=== PATIENT | female | born 1965 | race Caucasian/White ===

== ENCOUNTER 2016-12-27 12:26 | Emergency (ER) | payer MEDICAID ==
[2016-12-27 12:30] VITALS: BMI 30.7
[2016-12-27] MEDS ORDERED: Aspirin 325 mg EC Tablets PO STA (12:59)
--- NOTE | 2016-12-27 13:03 | C.PDOC ---
History Of Present Illness 51 year old female presents to the ED with complaints of intermittent episodes of chest pain and palpitations for five days. As per patient's daughter, patient is also feeling weak and pain radiates to left hand and back. Patient notes a history of HTN and denies fever, leg swelling, or other complaints at this time. Time Seen by Provider: 12/27/16 12:36 Chief Complaint (Nursing): Chest Pain History Per: Patient, Family History/Exam Limitations: no limitations Onset/Duration Of Symptoms: Days (5 days) Quality: "Pain" Associated Symptoms: denies: Nausea, Dyspnea, Diaphoresis, Syncope Recent travel outside of the [place]: No Past Medical History Reviewed: Historical Data, Nursing Documentation, Vital Signs Vital Signs: Last Vital Signs Temp 98.6 F 12/27/16 15:30 Pulse 97 H 12/27/16 15:30 Resp 16 12/27/16 15:30 BP 139/86 12/27/16 15:30 Pulse Ox 99 12/27/16 15:48 Family History: States: Unknown Family Hx Review Of Systems Constitutional: Negative for: Fever, Chills Cardiovascular: Positive for: Chest Pain, Palpitations Respiratory: Negative for: Cough, Shortness of Breath Gastrointestinal: Negative for: Nausea, Vomiting Musculoskeletal: Positive for: Back Pain (left back pain radiating from chest pain), Hand Pain (left hand pain radiating from chest pain). Negative for: Leg Pain Neurological: Negative for: Weakness, Numbness, Headache Physical Exam - Physical Exam Appears: Non-toxic, No Acute Distress Skin: Warm, Dry Head: Atraumatic Eye(s): bilateral: Normal Inspection, PERRL, EOMI Oral Mucosa: Moist Neck: Supple Chest: Symmetrical, No Deformity Cardiovascular: Rhythm Regular Respiratory: Normal Breath Sounds, No Rales, No Rhonchi, No Wheezing Extremity: Normal ROM, No Tenderness, No Pedal Edema, No Calf Tenderness, Capillary Refill (good capillary refill, less than 2 seconds ), No Deformity, No Swelling Pulses: Left Dorsalis Pedis: Normal, Right Dorsalis Pedis: Normal Neurological/Psych: Oriented x3, Normal Speech, Normal Cognition, Normal Cranial Nerves, Normal Motor, Normal Sensation, Normal Reflexes ED Course And Treatment - Laboratory Results Result Diagrams: 12/27/16 13:17 12/27/16 13:17 Interpretation Of ECG: Sinus tachycardia 125 bpm, ST depressions, and V1, V2, V5 , and V6 AVF O2 Sat by Pulse Oximetry: 99 (room air ) Pulse Ox Interpretation: Normal - Radiology CXR: Interpreted by Me CXR Interpretation: Yes: No Acute Disease. No: Infiltrates Against Medical Advice - AMA Patient Left Against Medical Advice: The patient declines admission to the hospital and wishes to leave the Emergency Department. This action is against my medical advice. This decision was made with informed refusal. The patient was told that admission to the hospital is necessary. Explanation of the reasons why were discussed. The risks of leaving were explained to the patient and include, but are not limited to, worsening of known or currently unknown conditions, permanent disability and from undiagnosed or untreated conditions. The patient has the capacity to make this informed decision and understands my explanation of the current medical problem and risks of leaving. The patient voluntarily accepts these risks and signed an AMA form documenting our conversation. The patient was given the opportunity to ask questions and reconsider. The patient was encouraged to return to the Emergency Department at any time for further care. Medical Decision Making Medical Decision Making: The patient's EKG shows ischemia in the inferior/lateral leads. There is no EKG for comparison and patient has never been seen in this ED in the past. The patient was informed that she should be admitted for abnormal EKG and r/o ACS. Patient initial agrees upon admission. Call placed to Dr. Ahumada (covering Dr. Antonio Mera). On re-exam, patient is A&O x3 and patient reports that she feels much improved and refuses admission into the hospital. AMA form obtained. Disposition - Disposition Referrals: Cesar Mera MD [Medical Doctor] - Disposition: AGAINST MEDICAL ADVICE Disposition Time: 15:41 Condition: FAIR Additional Instructions: Follow up with the medical doctor/clinic within 1-2 days, Return if worsened Prescriptions: Aspirin [Ecotrin] 81 mg PO DAILY #30 tabec Instructions: Chest Pain (ED) - POA Present On Arrival: None - Clinical Impression Clinical Impression: Chest pain - Scribe Statement The provider has reviewed the documentation as recorded by the Scribe Shyla Mckeon All medical record entries made by the Scribe were at my direction and personally dictated by me. I have reviewed the chart and agree that the record accurately reflects my personal performance of the history, physical exam, medical decision making, and the department course for this patient. I have also personally directed, reviewed, and agree with the discharge instructions and disposition.
[2016-12-27 13:27] LABS: BASO % 0.4 % (0.0-2.0); EOS # 0.2 K/uL (0.0-0.7); EOS % 2.3 % (0.0-4.0); HEMOGLOBIN 11.2 g/dL (11.0-16.0); LYMPH % 25.7 % (20.0-40.0); MEAN CELL VOLUME 80.5 fL (81.0-99.0); MEAN CORPUSCULAR HEMOGLOBIN 25.2 pg (27.0-31.0); MEAN CORPUSCULAR HGB CONC 31.4 g/dL (33.0-37.0); MONO # 0.6 K/uL (0.0-0.8); MONO % 7.8 % (0.0-10.0); NEUT # 4.9 K/uL (1.8-7.0); NEUT % 63.8 % (50.0-75.0); RBC 4.45 Mil/uL (3.80-5.20); RED CELL DISTRIBUTION WIDTH 17.1 % (11.5-14.5); WHITE BLOOD COUNT 7.7 K/uL (4.8-10.8)
[2016-12-27 13:37] LABS: AST/SGOT 24 U/L (14-36); GFR AFRICAN-AMERICAN > 60; GFR NON-AFRICAN AMERICAN > 60; INR 1.2; PROTHROMBIN TIME 13.4 SECONDS (9.7-12.2)
[2016-12-27 13:38] LABS: ALT/SGPT 34 U/L (9-52); BLOOD UREA NITROGEN 9 mg/dL (7-17); CALCIUM 9.5 mg/dl (8.6-10.4)
[2016-12-27 13:47] LABS: B-TYPE NATRIURETIC PEPTIDE 21.3 pg/mL (0-450); CK-MB 0.41 ng/mL (0.0-3.38)
[2016-12-27 14:06] VITALS: RESP 16
[2016-12-27 15:36] VITALS: BP 139/86; PULSE 97; TEMP 98.6; O2SAT 99
--- NOTE | 2016-12-27 16:12 | RAD ---
PROCEDURE: CHEST RADIOGRAPH, 1 VIEW HISTORY: chest pain COMPARISON: None available. FINDINGS: LUNGS: Clear. PLEURA: No pneumothorax or pleural fluid seen. CARDIOVASCULAR: Normal. OSSEOUS STRUCTURES: No significant abnormalities. VISUALIZED UPPER ABDOMEN: Normal. OTHER FINDINGS: None. IMPRESSION: No active disease.
--- NOTE | 2016-12-30 13:01 | CARD ---
APPROVED REPORT EKG Measurement Heart [id number] <Conclusion> Sinus tachycardia Nonspecific ST and T wave abnormality Abnormal ECG
== END 2016-12-27 16:10 | disposition left against medical advice (07) ==
LOC: C.ER 12:26
DX: R07.9 Chest pain, unspecified (principal)

== ENCOUNTER 2018-08-04 08:57 | Observation (INO) | payer MEDICAID ==
[2018-08-04 08:57] VITALS: BMI 30.7
[2018-08-04] MEDS ORDERED: Sodium Chloride 0.9% 1,000 ML IV STA (09:23)
[2018-08-04] MEDS ORDERED: Sodium Chloride 0.9% 1,000 ML ONE (09:32)
--- NOTE | 2018-08-04 09:36 | C.PDOC ---
History Of Present Illness 52 y/o F c PMHx HTN, DM p/w body aches and headache x 1-2 weeks. Reports intermittent chest pain and 5 minute episodes of palpitations for the last week. Denies fever, vomiting, recent travel, surgeries. Time Seen by Provider: 08/04/18 09:21 Chief Complaint (Nursing): Palpitations Past Medical History Vital Signs: Last Vital Signs Temp 98.3 F 08/04/18 09:06 Pulse 152 H 08/04/18 09:06 Resp 18 08/04/18 09:06 BP 176/106 H 08/04/18 09:06 Pulse Ox 100 08/04/18 09:06 - Medical History PMH: HTN Family History: States: Unknown Family Hx - Social History Hx Alcohol Use: No Hx Substance Use: No - Immunization History Hx Tetanus Toxoid Vaccination: No Hx Influenza Vaccination: No Hx Pneumococcal Vaccination: No Review Of Systems Except As Marked, All Systems Reviewed And Found Negative. Constitutional: Negative for: Fever Gastrointestinal: Negative for: Vomiting Physical Exam - Physical Exam Additional Physical Exam Comments: Gen: NAD Head: NC/AT Eyes: PERRL ENT: MMM Neck: Supple Chest: No tenderness CV: Tachycardia Lungs: CTA b/l Abd: Soft, NT Back: No CVA tenderness Skin: No rash Extremities: No asymmetric edema Neuro: Alert, no focal deficit ED Course And Treatment - Laboratory Results Result Diagrams: 08/04/18 09:33 08/04/18 09:33 O2 Sat by Pulse Oximetry: 100 Medical Decision Making Medical Decision Making: EKG Sinus tachycardia 148 bpm, no ST elevations. Cardizem 20mg IVP administered, rate down to 120s. Will reassess after 15 minutes. HR continues in 130s, blood pressure stable. Will readminister 30mg IVP. Repeat EKG Sinus rhythm 109 bpm, no ST/T wave changes. FINDINGS: Examination limited by habitus. LUNGS: No focal consolidation. Please note that chest x-ray has limited sensitivity for the detection of pulmonary masses. PLEURA: No significant pleural effusion identified. No definite pneumothorax . CARDIOVASCULAR: Heart size appears within normal limits. Ectatic aorta. Atherosclerotic calcifications of the aorta present. OSSEOUS STRUCTURES: No acute osseous abnormality identified. VISUALIZED UPPER ABDOMEN: Unremarkable. OTHER FINDINGS: None. IMPRESSION: No focal consolidation. Disposition Discussed With : Rufino Boston - Disposition Disposition: HOSPITALIZED Disposition Time: 10:10 Condition: FAIR - POA Core Measure Indicators: Chest Pain - Clinical Impression Clinical Impression: Chest pain, Palpitations
[2018-08-04 09:38] LABS: BASO % 0.4 % (0.0-2.0); EOS % 0.2 % (0.0-4.0); LYMPH # 2.2 K/uL (1.0-4.3); LYMPH % 23.1 % (20.0-40.0); MEAN CORPUSCULAR HEMOGLOBIN 30.5 pg (27.0-31.0); MEAN CORPUSCULAR HGB CONC 32.9 g/dL (33.0-37.0); MEAN PLATELET VOLUME 7.7 fL (7.2-11.7); MONO # 0.4 K/uL (0.0-0.8); MONO % 4.2 % (0.0-10.0); NEUT # 6.7 K/uL (1.8-7.0); NEUT % 72.1 % (50.0-75.0); RBC 4.6 Mil/uL (3.80-5.20); RED CELL DISTRIBUTION WIDTH 13.8 % (11.5-14.5); WHITE BLOOD COUNT 9.3 K/uL (4.8-10.8)
[2018-08-04 09:40] LABS: MEAN CELL VOLUME 92.7 fL (81.0-99.0)
[2018-08-04 09:49] LABS: ALB/GLOB RATIO 1.3 (1.0-2.1); ALBUMIN 4.8 g/dL (3.5-5.0); ALT/SGPT 26 U/L (9-52); AST/SGOT 25 U/L (14-36); BLOOD UREA NITROGEN 13 mg/dL (7-17); CALCIUM 10.1 mg/dl (8.6-10.4); GFR NON-AFRICAN AMERICAN > 60
[2018-08-04 10:02] LABS: CK-MB 0.46 ng/mL (0.0-3.38)
[2018-08-04 10:21] LABS: INR 1.2
--- NOTE | 2018-08-04 10:36 | RAD ---
HISTORY: chest pain, tachycardia COMPARISON: Chest x-ray performed 12/27/16 TECHNIQUE: Chest, one view. FINDINGS: Examination limited by habitus. LUNGS: No focal consolidation. Please note that chest x-ray has limited sensitivity for the detection of pulmonary masses. PLEURA: No significant pleural effusion identified. No definite pneumothorax . CARDIOVASCULAR: Heart size appears within normal limits. Ectatic aorta. Atherosclerotic calcifications of the aorta present. OSSEOUS STRUCTURES: No acute osseous abnormality identified. VISUALIZED UPPER ABDOMEN: Unremarkable. OTHER FINDINGS: None. IMPRESSION: No focal consolidation.
[2018-08-04 10:56] LABS: SQUAMOUS EPITHIAL 1 /hpf (0-5); URINE BACTERIA RARE (<OCC); URINE BILIRUBIN NEGATIVE (NEGATIVE); URINE BLOOD NEGATIVE (NEGATIVE); URINE CLARITY Clear (Clear); URINE COLOR Straw (YELLOW); URINE GLUCOSE (UA) NORMAL (Normal); URINE LEUKOCYTE ESTERASE NEG Leu/uL (Negative); URINE PROTEIN NEGATIVE (NEGATIVE); URINE UROBILINOGEN NORMAL mg/dL (0.2-1.0)
--- NOTE | 2018-08-04 15:38 | CARD ---
APPROVED REPORT Date of service: 08/04/2018 EXAM: Two-dimensional and M-mode echocardiogram with Doppler and color Doppler. Other Information Quality : Rhythm : Tachycardia INDICATION Chest Pain Palpitations RISK FACTORS Hypertension Diabetes 2D DIMENSIONS IVSd0.7 (0.7-1.1cm)Aortic Root (2D)2.7 (2.0-3.7cm) LVDd4.7 (3.9-5.9cm)PWd0.8 (0.7-1.1cm) LA Hhdcux07 (18-58mL)LVDs2.2 (2.5-4.0cm) FS (%) 52.9 %LVEF (%)84.0 (>50%) LVEF (Laguna's)62.86 %IVC0.00 cm M-Mode DIMENSIONS RVDd1.49 (2.1-3.2cm)Left Atrium (MM)3.57 (2.5-4.0cm) IVSd0.91 (0.7-1.1cm)Aortic Root2.68 (2.2-3.7cm) LVDd4.77 (4.0-5.6cm)Aortic Cusp Exc.1.89 (1.5-2.0cm) PWd0.85 (0.7-1.1cm)FS (%) 52 % LVDs2.28 (2.0-3.8cm)LVEF (%)83 (>50%) Mitral Valve MV E Wxjwkcqg16.3cm/sMV A Lqqmebtm73.4cm/sE/A ratio0.7 JDUX622.24 cm/s TDI Lateral E' Peak V13.60cm/sMedial E' Peak V6.18cm/sE/Lateral E'4.4 E/Medial E'9.8 LEFT VENTRICLE The left ventricle is normal size. There is normal left ventricular wall thickness. The left ventricle is hyperdynamic. There is normal LV segmental wall motion. Transmitral Doppler flow pattern is Grade I-abnormal relaxation pattern. RIGHT VENTRICLE The right ventricle is normal size. There is normal right ventricular wall thickness. The right ventricular systolic function is normal. ATRIA The left atrium size is normal. The right atrium size is normal. AORTIC VALVE The aortic valve is normal in structure. No aortic regurgitation is present. There is no aortic valvular stenosis. MITRAL VALVE The mitral valve is normal in structure. There is no mitral valve stenosis. Mitral regurgitation is mild. TRICUSPID VALVE The tricuspid valve is normal in structure. There is mild tricuspid regurgitation. PULMONIC VALVE The pulmonary valve is normal in structure. There is no pulmonic valvular regurgitation. GREAT VESSELS The aortic root is normal in size. The IVC is normal in size and collapses >50% with inspiration. PERICARDIAL EFFUSION There is no pericardial effusion. <Conclusion> The left ventricle is normal size. There is normal left ventricular wall thickness. The left ventricle is hyperdynamic. There is normal LV segmental wall motion. Transmitral Doppler flow pattern is Grade I-abnormal relaxation pattern. Mitral regurgitation is mild. There is mild tricuspid regurgitation.
[2018-08-04 15:48] VITALS: RESP 20
[2018-08-04 20:12] LABS: CK-MB 0.44 ng/mL (0.0-3.38)
--- NOTE | 2018-08-04 21:44 | CP.PCM.HP ---
Present on Admission - Present on Admission Any Indicators Present on Admission: No Past Patient History - Past Social History Smoking Status: Never Smoked - CARDIAC Hx Hypertension: Yes - ENDOCRINE/METABOLIC Hx Diabetes Mellitus Type 2: Yes - PSYCHIATRIC Hx Substance Use: No - SURGICAL HISTORY Hx Surgeries: No - ANESTHESIA Hx Anesthesia: No Meds Allergies/Adverse Reactions: Allergies Allergy/AdvReac Type Severity Reaction Status Date / Time No Known Allergies Allergy Verified 08/04/18 09:43 Results - Vital Signs Recent Vital Signs: Last Vital Signs Temp 97.6 F 08/04/18 15:00 Pulse 96 H 08/04/18 19:49 Resp 20 08/04/18 15:00 BP 131/97 H 08/04/18 17:43 Pulse Ox 97 08/04/18 15:00 - Labs Result Diagrams: 08/04/18 09:33 08/04/18 09:33 Labs: Laboratory Results - last 24 hr 08/04/18 08/04/18 08/04/18 09:04 09:33 09:33 WBC 9.3 RBC 4.60 Hgb 14.0 D Hct 42.6 MCV 92.7 D MCH 30.5 MCHC 32.9 L RDW 13.8 Plt Count 440 H MPV 7.7 Neut % (Auto) 72.1 Lymph % (Auto) 23.1 [place] % (Auto) 4.2 Eos % (Auto) 0.2 Baso % (Auto) 0.4 Neut # (Auto) 6.7 Lymph # (Auto) 2.2 [place] # (Auto) 0.4 Eos # (Auto) 0.0 Baso # (Auto) 0.0 PT INR APTT Sodium Potassium Chloride Carbon Dioxide Anion Gap BUN Creatinine Est GFR ( Amer) Est GFR (Non-Af Amer) POC Glucose (mg/dL) 215 H Random Glucose Calcium Total Bilirubin AST ALT Alkaline Phosphatase Total Creatine Kinase CK-MB (Mass) Troponin I Total Protein Albumin Globulin Albumin/Globulin Ratio Urine Color Urine Clarity Urine pH Ur Specific [place] Urine Protein Urine Glucose (UA) Urine Ketones Urine Blood Urine Nitrate Urine Bilirubin Urine Urobilinogen Ur Leukocyte Esterase Urine WBC (Auto) Ur Squamous Epith Cells Urine Bacteria Influenza Typ A,B (EIA) Negative for flu a/b 08/04/18 08/04/18 08/04/18 09:33 09:33 10:32 WBC RBC Hgb Hct MCV MCH MCHC RDW Plt Count MPV Neut % (Auto) Lymph % (Auto) [place] % (Auto) Eos % (Auto) Baso % (Auto) Neut # (Auto) Lymph # (Auto) [place] # (Auto) Eos # (Auto) Baso # (Auto) PT 13.0 H INR 1.2 APTT 32 Sodium 140 Potassium 3.8 Chloride 100 Carbon Dioxide 27 Anion Gap 17 BUN 13 Creatinine 0.6 L Est GFR ( Amer) > 60 Est GFR (Non-Af Amer) > 60 POC Glucose (mg/dL) Random Glucose 198 H D Calcium 10.1 Total Bilirubin 0.4 AST 25 ALT 26 Alkaline Phosphatase 140 H Total Creatine Kinase 70 CK-MB (Mass) 0.46 Troponin I < 0.0120 Total Protein 8.6 H Albumin 4.8 Globulin 3.8 Albumin/Globulin Ratio 1.3 Urine Color Straw Urine Clarity Clear Urine pH 7.0 Ur Specific [place] 1.004 Urine Protein Negative Urine Glucose (UA) Normal Urine Ketones Negative Urine Blood Negative Urine Nitrate Negative Urine Bilirubin Negative Urine Urobilinogen Normal Ur Leukocyte Esterase Neg Urine WBC (Auto) 1 Ur Squamous Epith Cells 1 Urine Bacteria Rare Influenza Typ A,B (EIA) 08/04/18 08/04/18 08/04/18 16:17 19:45 21:34 WBC RBC Hgb Hct MCV MCH MCHC RDW Plt Count MPV Neut % (Auto) Lymph % (Auto) [place] % (Auto) Eos % (Auto) Baso % (Auto) Neut # (Auto) Lymph # (Auto) [place] # (Auto) Eos # (Auto) Baso # (Auto) PT INR APTT Sodium Potassium Chloride Carbon Dioxide Anion Gap BUN Creatinine Est GFR ( Amer) Est GFR (Non-Af Amer) POC Glucose (mg/dL) 117 H 125 H Random Glucose Calcium Total Bilirubin AST ALT Alkaline Phosphatase Total Creatine Kinase 57 CK-MB (Mass) 0.44 Troponin I < 0.0120 Total Protein Albumin Globulin Albumin/Globulin Ratio Urine Color Urine Clarity Urine pH Ur Specific [place] Urine Protein Urine Glucose (UA) Urine Ketones Urine Blood Urine Nitrate Urine Bilirubin Urine Urobilinogen Ur Leukocyte Esterase Urine WBC (Auto) Ur Squamous Epith Cells Urine Bacteria Influenza Typ A,B (EIA)
--- NOTE | 2018-08-05 04:55 | HP ---
CHIEF COMPLAINT: Chest pain, palpitation, weakness, dizziness x2 weeks. HISTORY OF PRESENT ILLNESS: This is a 52-year-old [place] female with history of diabetes, hypertension, hyperlipidemia who was compliant with her diet, medication, and followup. According to patient for last two weeks, she is having palpitation, weakness, dizziness, and left precordial chest pain, dull, non-radiating, not associated with diaphoresis each time she walks. She is not able to carry out activities of daily living. She saw her PMD in this process. The patient was instructed to continue to monitor her activity. The patient denies any cough, sore throat, runny nose. She denies any history of polyuria, polydipsia, polyphagia. She denies any history of hematuria, pyuria. She denies any sneezing, itchy eyes, or itchy nose. There is no history of trauma, fall, or loss of consciousness. There is no history of seizure like activity. She denies any joint pains. She denies any tingling or numbness in the feet. PAST MEDICAL HISTORY: Diabetes, hypertension, hyperlipidemia. SOCIAL HISTORY: Nonsmoker, non-EtOH user. ALLERGIES: UNKNOWN. CURRENT MEDICATIONS: At home, she is on Toprol-XL, losartan, Glucophage. PHYSICAL EXAMINATION: GENERAL: A middle-aged female, in no acute distress. VITAL SIGNS: Blood pressure 131/97, pulse 92, respiratory rate 20, temperature 97.3. In the ER, her heart rate was as much as 150. SKIN: Warm, good turgor. No bruises. No purpura. No ecchymosis. HEENT: Atraumatic, normocephalic. Negative pallor. Negative jaundice. Extraocular movements are intact. NECK: Supple. Flat neck veins. No JVD. CHEST WALL: Bilateral symmetrical expansion. No tenderness. No deformity. LUNGS: Clear. No rales. No rhonchi. CARDIOVASCULAR SYSTEM: PMI in fifth intercostal space. S1 and S2. Regular. Tachycardiac. ABDOMEN: Soft, nontender. Bowel sounds are positive. RECTAL: No masses. No bleed. EXTREMITIES: No clubbing, cyanosis, or edema. CENTRAL NERVOUS SYSTEM: Awake, alert and oriented x3. ASSESSMENT: 1. Chest pain, palpitation, tachycardia, rule out cardiac arrhythmia which could be atrial fibrillation versus hyperthyroidism versus ischemia of coronary origin, could be anemia though unlikely. 2. Hypertension, poorly controlled. 3. Hyperlipidemia. 4. Type 2 diabetes. PLAN: Admit. Start the patient on metoprolol. Cardiology evaluation, echocardiogram, TSH, hall monitor. Rufino Boston MD
--- NOTE | 2018-08-05 07:10 | CP.PCM.CON ---
History of Present Illness - History of Present Illness History of Present Illness: 52 y/o F c PMHx HTN, DM p/w body aches and headache x 1-2 weeks. Reports intermittent chest pain and 5 minute episodes of palpitations for the last week. Denies fever, vomiting, recent travel, surgeries. Chief Complaint (Nursing): Palpitations Past Medical History Vital Signs: Last Vital Signs Temp 98.3 F 08/04/18 09:06 Pulse 152 H 08/04/18 09:06 Resp 18 08/04/18 09:06 BP 176/106 H 08/04/18 09:06 Pulse Ox 100 08/04/18 09:06 - Medical History PMH: HTN Family History: States: Unknown Family Hx - Social History Hx Alcohol Use: No Hx Substance Use: No - Immunization History Hx Tetanus Toxoid Vaccination: No Hx Influenza Vaccination: No Hx Pneumococcal Vaccination: No Review Of Systems Except As Marked, All Systems Reviewed And Found Negative. Constitutional: Negative for: Fever Gastrointestinal: Negative for: Vomiting Physical Exam - Physical Exam Additional Physical Exam Comments: Gen: NAD Head: NC/AT Eyes: PERRL ENT: MMM Neck: Supple Chest: No tenderness CV: Tachycardia Lungs: CTA b/l Abd: Soft, NT Back: No CVA tenderness Skin: No rash Extremities: No asymmetric edema Neuro: Alert, no focal deficit Past Patient History - Past Social History Smoking Status: Never Smoked - CARDIAC Hx Hypertension: Yes - ENDOCRINE/METABOLIC Hx Diabetes Mellitus Type 2: Yes - PSYCHIATRIC Hx Substance Use: No - SURGICAL HISTORY Hx Surgeries: No - ANESTHESIA Hx Anesthesia: No Meds Allergies/Adverse Reactions: Allergies Allergy/AdvReac Type Severity Reaction Status Date / Time No Known Allergies Allergy Verified 08/04/18 09:43 - Medications Medications: Current Medications Aspirin (Ecotrin) 81 mg PO DAILY [facility] Enoxaparin Sodium (Lovenox) 40 mg SC DAILY [facility] Influenza Virus Vaccine (Flucelvax Quad [id number] Syr) 60 mcg IM .ONCE ONE Stop: 08/05/18 10:01 Losartan Potassium (Cozaar) 100 mg PO DAILY [facility] Metoprolol Tartrate (Lopressor) 25 mg PO BID [facility] Last Admin: 08/04/18 17:43 Dose: 25 mg Pneumococcal Polyvalent Vaccine (Pneumovax 23 Vaccine) 0.5 ml IM .ONCE ONE Stop: 08/05/18 10:01 Rosuvastatin Calcium (Crestor) 10 mg PO HS [facility] Last Admin: 08/04/18 22:12 Dose: 10 mg Results - Vital Signs Recent Vital Signs: Last Vital Signs Temp 98.2 F 08/04/18 23:30 Pulse 83 08/04/18 23:30 Resp 20 08/04/18 23:30 BP 123/80 08/04/18 23:30 Pulse Ox 97 08/04/18 23:30 - Labs Result Diagrams: 08/04/18 09:33 08/04/18 09:33 Labs: Laboratory Results - last 24 hr 08/04/18 08/04/18 08/04/18 09:04 09:33 09:33 WBC 9.3 RBC 4.60 Hgb 14.0 D Hct 42.6 MCV 92.7 D MCH 30.5 MCHC 32.9 L RDW 13.8 Plt Count 440 H MPV 7.7 Neut % (Auto) 72.1 Lymph % (Auto) 23.1 [place] % (Auto) 4.2 Eos % (Auto) 0.2 Baso % (Auto) 0.4 Neut # (Auto) 6.7 Lymph # (Auto) 2.2 [place] # (Auto) 0.4 Eos # (Auto) 0.0 Baso # (Auto) 0.0 PT INR APTT Sodium Potassium Chloride Carbon Dioxide Anion Gap BUN Creatinine Est GFR ( Amer) Est GFR (Non-Af Amer) POC Glucose (mg/dL) 215 H Random Glucose Calcium Total Bilirubin AST ALT Alkaline Phosphatase Total Creatine Kinase CK-MB (Mass) Troponin I Total Protein Albumin Globulin Albumin/Globulin Ratio Urine Color Urine Clarity Urine pH Ur Specific [place] Urine Protein Urine Glucose (UA) Urine Ketones Urine Blood Urine Nitrate Urine Bilirubin Urine Urobilinogen Ur Leukocyte Esterase Urine WBC (Auto) Ur Squamous Epith Cells Urine Bacteria Influenza Typ A,B (EIA) Negative for flu a/b 08/04/18 08/04/18 08/04/18 09:33 09:33 10:32 WBC RBC Hgb Hct MCV MCH MCHC RDW Plt Count MPV Neut % (Auto) Lymph % (Auto) [place] % (Auto) Eos % (Auto) Baso % (Auto) Neut # (Auto) Lymph # (Auto) [place] # (Auto) Eos # (Auto) Baso # (Auto) PT 13.0 H INR 1.2 APTT 32 Sodium 140 Potassium 3.8 Chloride 100 Carbon Dioxide 27 Anion Gap 17 BUN 13 Creatinine 0.6 L Est GFR ( Amer) > 60 Est GFR (Non-Af Amer) > 60 POC Glucose (mg/dL) Random Glucose 198 H D Calcium 10.1 Total Bilirubin 0.4 AST 25 ALT 26 Alkaline Phosphatase 140 H Total Creatine Kinase 70 CK-MB (Mass) 0.46 Troponin I < 0.0120 Total Protein 8.6 H Albumin 4.8 Globulin 3.8 Albumin/Globulin Ratio 1.3 Urine Color Straw Urine Clarity Clear Urine pH 7.0 Ur Specific [place] 1.004 Urine Protein Negative Urine Glucose (UA) Normal Urine Ketones Negative Urine Blood Negative Urine Nitrate Negative Urine Bilirubin Negative Urine Urobilinogen Normal Ur Leukocyte Esterase Neg Urine WBC (Auto) 1 Ur Squamous Epith Cells 1 Urine Bacteria Rare Influenza Typ A,B (EIA) 08/04/18 08/04/18 08/04/18 16:17 19:45 21:34 WBC RBC Hgb Hct MCV MCH MCHC RDW Plt Count MPV Neut % (Auto) Lymph % (Auto) [place] % (Auto) Eos % (Auto) Baso % (Auto) Neut # (Auto) Lymph # (Auto) [place] # (Auto) Eos # (Auto) Baso # (Auto) PT INR APTT Sodium Potassium Chloride Carbon Dioxide Anion Gap BUN Creatinine Est GFR ( Amer) Est GFR (Non-Af Amer) POC Glucose (mg/dL) 117 H 125 H Random Glucose Calcium Total Bilirubin AST ALT Alkaline Phosphatase Total Creatine Kinase 57 CK-MB (Mass) 0.44 Troponin I < 0.0120 Total Protein Albumin Globulin Albumin/Globulin Ratio Urine Color Urine Clarity Urine pH Ur Specific [place] Urine Protein Urine Glucose (UA) Urine Ketones Urine Blood Urine Nitrate Urine Bilirubin Urine Urobilinogen Ur Leukocyte Esterase Urine WBC (Auto) Ur Squamous Epith Cells Urine Bacteria Influenza Typ A,B (EIA) 08/05/18 06:57 WBC RBC Hgb Hct MCV MCH MCHC RDW Plt Count MPV Neut % (Auto) Lymph % (Auto) [place] % (Auto) Eos % (Auto) Baso % (Auto) Neut # (Auto) Lymph # (Auto) [place] # (Auto) Eos # (Auto) Baso # (Auto) PT INR APTT Sodium Potassium Chloride Carbon Dioxide Anion Gap BUN Creatinine Est GFR ( Amer) Est GFR (Non-Af Amer) POC Glucose (mg/dL) 132 H Random Glucose Calcium Total Bilirubin AST ALT Alkaline Phosphatase Total Creatine Kinase CK-MB (Mass) Troponin I Total Protein Albumin Globulin Albumin/Globulin Ratio Urine Color Urine Clarity Urine pH Ur Specific [place] Urine Protein Urine Glucose (UA) Urine Ketones Urine Blood Urine Nitrate Urine Bilirubin Urine Urobilinogen Ur Leukocyte Esterase Urine WBC (Auto) Ur Squamous Epith Cells Urine Bacteria Influenza Typ A,B (EIA) Assessment & Plan - Assessment and Plan (Free Text) Assessment: 52 F with exertional chest pain and palpitations For stress test in am ECHO: Normal EF Further management as per Dr. Cabrera (Covering for me)
[2018-08-05 07:45] LABS: ALB/GLOB RATIO 1.4 (1.0-2.1); ALBUMIN 4.4 g/dL (3.5-5.0); ALT/SGPT 23 U/L (9-52); AST/SGOT 29 U/L (14-36); BLOOD UREA NITROGEN 11 mg/dL (7-17); CALCIUM 9.6 mg/dl (8.6-10.4); GFR NON-AFRICAN AMERICAN > 60
[2018-08-05] MEDS ORDERED: Caffeine Citrated **INJ** 20 MG/ML IV ONE (07:49)
[2018-08-05 07:59] LABS: BASO % 0.3 % (0.0-2.0); EOS # 0.1 K/uL (0.0-0.7); EOS % 0.9 % (0.0-4.0); HEMOGLOBIN 13.6 g/dL (11.0-16.0); LYMPH % 26.8 % (20.0-40.0); MEAN CORPUSCULAR HEMOGLOBIN 30.6 pg (27.0-31.0); MEAN CORPUSCULAR HGB CONC 32.9 g/dL (33.0-37.0); MONO # 0.5 K/uL (0.0-0.8); MONO % 6.6 % (0.0-10.0); NEUT # 4.9 K/uL (1.8-7.0); NEUT % 65.4 % (50.0-75.0); RBC 4.46 Mil/uL (3.80-5.20); RED CELL DISTRIBUTION WIDTH 14.3 % (11.5-14.5); WHITE BLOOD COUNT 7.5 K/uL (4.8-10.8)
[2018-08-05] MEDS ORDERED: Influenza Vaccine 60 mcg/0.5 mL SYR (4YR UP) IM ONE (10:00)
[2018-08-05] MEDS ORDERED: Pneumococcal 23-Valent Vaccine IM ONE (10:00)
[2018-08-05] MEDS: Enoxaparin 40 mg Syringe SC SCH (10:11)
--- NOTE | 2018-08-05 17:54 | CARD ---
APPROVED REPORT Date of service: 08/05/2018 Protocol: LEXISCAN Test Type: LEXISCAN STRESS Test Indications: CHEST PAIN TACH Medical History: CP Target HR: 170 bpm Resting ECG: SINUS TACH Resting Heart Rate: 120 bpm Resting Blood Pressure: 140/80mmHg submaximum (85%): 145 bpm TEST SUMMARY PREINFSNHYPERV.32:[id number]/80.0. INFUSIONDOSE 100:300.00.01.0130/.0. NDEUHTEZY97:[id number]/80.2. PROCEDURE Pharmacologic stress testing was performed using 0.4mg per 5ml of regadenoson given intravenously over 7-10 seconds. POST EXERCISE Reason for Termination: Protocol Completed Target HR: No Max HR: 130 bpm 94% of Maximum Predicted HR: 170 bpm Exercise duration: 00:30 min:sec, 0 Stage Exercise capacity: 1.0METs Max Blood Pressure: 140/80mmHg Blood Pressure response to exercise: normal resting BP - appropriate response Heart Rate response to exercise: appropriate Chest Pain: No, none Angina index: 0 Arrhythmia: No, none ST Change: Yes, 1MM Deviation: 0 mm INTERPRETATION Stress EKG Conclusion: POSITIVE LEXISCAN STRESS TEST NORMAL BP RESPONSE TO LEXISCAN NUCLEAR STUDIES TO BE READ SEPARATELY EXAM: Myocardial Perfusion STRESS/REST Imaging Protocol The imaging protocol used to acquire images was Stress Tc-99m/rest Tc-99m 1 day Rest Spect myocardial perfusion imaging was performed in supine position 45 minutes following the injection of 32.6 mCi of Tc-99 Myoview. Gated Stress Spect was performed 45 minutes after intravenous 13.1 mCi Tc-99 Myoview injection. The images were gated to evaluate regional wall motion and calculate ventricular ejection fraction.Images were reconstructed using backfilter projection method in short horizontal and verticle long axis. Spect slices were generated. RESTING DATA EDV75.17rwUH2.40L/min ESV19.00mlMyocardial Deoa270.00g Av. Heart Rate95.00bpm EF75.00% STRESS DATA EDV49.00ivCO9.60L/min ESV9.00mlMyocardial Mass94.00g EF82.00% Regional WT score at stress:0.00 Regional WM score at stress:0.00 Summed WT score at stress:1.00 Av. Heart Kpvk414.00bpmSummed WM score at stress:0.00 LV Perf. Quant 17 Seg. SSS0.00 17 Seg. SRS0.00 17 Seg. SDS0.00 Stress Defect Extent (% LAD)0.00Rest Defect Extent (% LAD)0.00Rev. Defect Extent (% LAD)0.00 Stress Defect Extent (% LCX)0.00Rest Defect Extent (% LCX)0.00Rev. Defect Extent (% LCX)0.00 Stress Defect Extent (% RCA)0.00Rest Defect Extent (% RCA)0.00Rev. Defect Extent (% RCA)0.00 Stress Defect Extent (% SOCORRO)0.00Rest Defect Extent (% SOCORRO)0.00Rev. Defect Extent (% SOCORRO)0.00 IMPRESSION Normal Myocardial Perfusion exercise stress study Left Ventricle LV Size/Shape: The left ventricle is normal size. LV Function:Left ventricle systolic function is normal. The Ejection Fraction is >70%. Regional Wall Motion:There is normal left ventricular wall motion. Metabolism/Perfusion Defects: There is no stress-induced ischemia noted. There are no perfusion/metabolism defects. Conclusion 1. There is no stress-induced ischemia noted. 2. Left ventricle systolic function is normal. 3. The Ejection Fraction is >70%.
--- NOTE | 2018-08-05 20:55 | CP.PCM.PN ---
Subjective - Date & Time of Evaluation Date of Evaluation: 08/05/18 Time of Evaluation: 08:00 - Subjective Subjective: dictated Objective - Vital Signs/Intake and Output Vital Signs (last 24 hours): Temp Pulse Resp BP Pulse Ox 97.8 F 94 H 20 110/74 97 08/05/18 15:00 08/05/18 15:00 08/05/18 15:00 08/05/18 17:18 08/05/18 15:00 - Medications Medications: Current Medications Aspirin (Ecotrin) 81 mg PO DAILY [facility] Last Admin: 08/05/18 10:11 Dose: 81 mg Enoxaparin Sodium (Lovenox) 40 mg SC DAILY [facility] Last Admin: 08/05/18 10:11 Dose: 40 mg Losartan Potassium (Cozaar) 100 mg PO DAILY [facility] Last Admin: 08/05/18 10:09 Dose: 100 mg Metoprolol Tartrate (Lopressor) 25 mg PO BID [facility] Last Admin: 08/05/18 17:18 Dose: 25 mg Rosuvastatin Calcium (Crestor) 10 mg PO HS [facility] Last Admin: 08/04/18 22:12 Dose: 10 mg - Labs Labs: 08/05/18 07:16 08/05/18 07:16 PT 13.0 SECONDS (9.7-12.2) H 08/04/18 09:33 INR 1.2 08/04/18 09:33 APTT 32 SECONDS (21-34) 08/04/18 09:33
--- NOTE | 2018-08-05 21:58 | CARD ---
APPROVED REPORT Date of service: 08/04/2018 EKG Measurement Heart [id number] <Conclusion> Sinus tachycardia Otherwise normal ECG
--- NOTE | 2018-08-05 21:59 | CARD ---
APPROVED REPORT Date of service: 08/04/2018 EKG Measurement Heart [id number] TX 130P72 [id number] <Conclusion> Sinus tachycardia Nonspecific ST and T wave abnormality Abnormal ECG
--- NOTE | 2018-08-06 06:41 | PN ---
DATE: 08/05/2018 SUBJECTIVE: The patient has decreased tachycardia, decreased chest pain. She is ambulating. No nausea or vomiting . PHYSICAL EXAMINATION: VITAL SIGNS: Blood pressure 110/76, pulse 94, respiratory rate 20, temperature 97.8. LUNGS: Clear. CARDIOVASCULAR SYSTEM: S1 and S2, regular. ABDOMEN: Soft. ASSESSMENT: Tachycardia, rule out coronary ischemia, rule out coronary artery disease, rule out hypertensive heart disease. Could be flutter with variable blockage. Exercise stress test was negative with normal ejection fraction. Rufino Boston MD
[2018-08-06] MEDS: Enoxaparin 40 mg Syringe SC SCH (10:07)
--- NOTE | 2018-08-06 14:04 | CP.PCM.PN ---
Subjective - Date & Time of Evaluation Date of Evaluation: 08/06/18 Time of Evaluation: 14:04 Objective - Vital Signs/Intake and Output Vital Signs (last 24 hours): Temp Pulse Resp BP Pulse Ox 97.8 F 110 H 20 125/76 96 08/06/18 07:58 08/06/18 09:34 08/06/18 07:58 08/06/18 10:04 08/06/18 07:58 - Medications Medications: Current Medications Aspirin (Ecotrin) 81 mg PO DAILY [facility] Last Admin: 08/06/18 10:04 Dose: 81 mg Enoxaparin Sodium (Lovenox) 40 mg SC DAILY [facility] Last Admin: 08/06/18 10:07 Dose: 40 mg Losartan Potassium (Cozaar) 100 mg PO DAILY [facility] Last Admin: 08/06/18 10:03 Dose: 100 mg Metoprolol Tartrate (Lopressor) 25 mg PO BID [facility] Last Admin: 08/06/18 10:04 Dose: 25 mg Rosuvastatin Calcium (Crestor) 10 mg PO HS [facility] Last Admin: 08/05/18 21:27 Dose: 10 mg - Labs Labs: 08/05/18 07:16 08/05/18 07:16 PT 13.0 SECONDS (9.7-12.2) H 08/04/18 09:33 INR 1.2 08/04/18 09:33 APTT 32 SECONDS (21-34) 08/04/18 09:33 Assessment and Plan - Assessment and Plan (Free Text) Assessment: FOLLOW UP WITH DR KELLOGG IN HIS OFFICE ---CALL FOR APPOINTMENT FOLLOW UP WITH DR MRALEY IN HIS OFFICE ------CALL FOR APPOINTMENT CONRINUE HOME MEDICATION NEW PRESCRIPTION GIVEN OMEPRAZOLE 20 MG PO DAILY METOPROLOL 25 MG PO TWICE A DAY ASPIRIN 81 MG PO DAILY CRESTOR 10 MG PO DAILY ACTIVITY TOLERATED CALL DR KELLOGG OR GO TO THE EMERGENCY ROOM IF SYMPTOM RETURN OR WORSENING
[2018-08-06 15:35] VITALS: BP 119/78; PULSE 78; TEMP 97.7; O2SAT 98
--- NOTE | 2018-08-06 22:40 | CP.PCM.DIS ---
Provider - Provider Date of Admission: 08/04/18 10:43 Attending physician: Rufino Boston MD Consults: 08/04/18 11:10 Cardiology Consult Routine Comment: Consulting Provider: Deon Blake Consulting Physician: Deon Blake Reason for Consult: CHEST PAIN 08/05/18 06:44 Cardiology Consult Routine Comment: Please notify Dr. Cabrera Consulting Provider: Haritha Cabrera Consulting Physician: Haritha Cabrera Reason for Consult: Cardiology coverage. I am out of town till August 14 Time Spent in preparation of Discharge (in minutes): 30 Hospital Course - Lab Results Lab Results: Micro Results 08/04/18 10:32 Urine Random Urine Culture - Final No Growth (<1,000 CFU/ML) Most Recent Lab Values WBC 7.5 K/uL (4.8-10.8) 08/05/18 07:16 RBC 4.46 Mil/uL (3.80-5.20) 08/05/18 07:16 Hgb 13.6 g/dL (11.0-16.0) 08/05/18 07:16 Hct 41.4 % (34.0-47.0) 08/05/18 07:16 MCV 93.0 fL (81.0-99.0) 08/05/18 07:16 MCH 30.6 pg (27.0-31.0) 08/05/18 07:16 MCHC 32.9 g/dL (33.0-37.0) L 08/05/18 07:16 RDW 14.3 % (11.5-14.5) 08/05/18 07:16 Plt Count 383 K/uL (130-400) 08/05/18 07:16 MPV 8.0 fL (7.2-11.7) 08/05/18 07:16 Neut % (Auto) 65.4 % (50.0-75.0) 08/05/18 07:16 Lymph % (Auto) 26.8 % (20.0-40.0) 08/05/18 07:16 Bowie % (Auto) 6.6 % (0.0-10.0) 08/05/18 07:16 Eos % (Auto) 0.9 % (0.0-4.0) 08/05/18 07:16 Baso % (Auto) 0.3 % (0.0-2.0) 08/05/18 07:16 Neut # (Auto) 4.9 K/uL (1.8-7.0) 08/05/18 07:16 Lymph # (Auto) 2.0 K/uL (1.0-4.3) 08/05/18 07:16 Bowie # (Auto) 0.5 K/uL (0.0-0.8) 08/05/18 07:16 Eos # (Auto) 0.1 K/uL (0.0-0.7) 08/05/18 07:16 Baso # (Auto) 0.0 K/uL (0.0-0.2) 08/05/18 07:16 PT 13.0 SECONDS (9.7-12.2) H 08/04/18 09:33 INR 1.2 08/04/18 09:33 APTT 32 SECONDS (21-34) 08/04/18 09:33 Sodium 139 mmol/L (132-148) 08/05/18 07:16 Potassium 4.4 mmol/L (3.6-5.2) 08/05/18 07:16 Chloride 100 mmol/L (98-107) 08/05/18 07:16 Carbon Dioxide 32 mmol/L (22-30) H 08/05/18 07:16 Anion Gap 12 (10-20) 08/05/18 07:16 BUN 11 mg/dL (7-17) 08/05/18 07:16 Creatinine 0.6 mg/dL (0.7-1.2) L 08/05/18 07:16 Est GFR ( Amer) > 60 08/05/18 07:16 Est GFR (Non-Af Amer) > 60 08/05/18 07:16 POC Glucose (mg/dL) 193 mg/dL (65-110) H 08/06/18 10:50 Random Glucose 132 mg/dL (65-105) H D 08/05/18 07:16 Calcium 9.6 mg/dl (8.6-10.4) 08/05/18 07:16 Total Bilirubin 0.7 mg/dL (0.2-1.3) 08/05/18 07:16 AST 29 U/L (14-36) 08/05/18 07:16 ALT 23 U/L (9-52) 08/05/18 07:16 Alkaline Phosphatase 122 U/L (38-126) 08/05/18 07:16 Total Creatine Kinase 57 U/L (30-135) 08/04/18 19:45 CK-MB (Mass) 0.44 ng/mL (0.0-3.38) 08/04/18 19:45 Troponin I < 0.0120 ng/mL (0.00-0.120) 08/04/18 19:45 Total Protein 7.6 g/dL (6.3-8.3) 08/05/18 07:16 Albumin 4.4 g/dL (3.5-5.0) 08/05/18 07:16 Globulin 3.2 gm/dL (2.2-3.9) 08/05/18 07:16 Albumin/Globulin Ratio 1.4 (1.0-2.1) 08/05/18 07:16 TSH 3rd Generation 0.59 mIU/L (0.46-4.68) 08/05/18 07:16 Urine Color Straw (YELLOW) 08/04/18 10:32 Urine Clarity Clear (Clear) 08/04/18 10:32 Urine pH 7.0 (5.0-8.0) 08/04/18 10:32 Ur Specific Nickerson 1.004 (1.003-1.030) 08/04/18 10:32 Urine Protein Negative mg/dL (NEGATIVE) 08/04/18 10:32 Urine Glucose (UA) Normal mg/dL (Normal) 08/04/18 10:32 Urine Ketones Negative mg/dL (NEGATIVE) 08/04/18 10:32 Urine Blood Negative (NEGATIVE) 08/04/18 10:32 Urine Nitrate Negative (NEGATIVE) 08/04/18 10:32 Urine Bilirubin Negative (NEGATIVE) 08/04/18 10:32 Urine Urobilinogen Normal mg/dL (0.2-1.0) 08/04/18 10:32 Ur Leukocyte Esterase Neg Sage/uL (Negative) 08/04/18 10:32 Urine WBC (Auto) 1 /hpf (0-5) 08/04/18 10:32 Ur Squamous Epith Cells 1 /hpf (0-5) 08/04/18 10:32 Urine Bacteria Rare (<OCC) 08/04/18 10:32 Influenza Typ A,B (EIA) Negative for flu a/b (NEGATIVE) 08/04/18 09:33 Discharge Plan - Discharge Medications Prescriptions: Rosuvastatin Calcium [Crestor] 10 mg PO HS 30 Days tab Aspirin [Ecotrin] 81 mg PO DAILY 30 Days tabec MetFORMIN ER [Glucophage XR] 750 mg PO DAILY [address] Metoprolol Tartrate [Lopressor] 25 mg PO BID 30 Days tab Omeprazole 20 mg PO DAILY 30 Days ecc - Follow Up Plan Condition: FAIR Disposition: HOME/ ROUTINE Instructions: Chest Pain (DC), Aspirin, Metformin, Metoprolol, Rosuvastatin, Palpitations (DC) Additional Instructions: FOLLOW UP WITH DR BOSTON IN HIS OFFICE ---CALL FOR APPOINTMENT FOLLOW UP WITH DR BLAKE IN HIS OFFICE ------CALL FOR APPOINTMENT CONRINUE HOME MEDICATION NEW PRESCRIPTION GIVEN OMEPRAZOLE 20 MG PO DAILY METOPROLOL 25 MG PO TWICE A DAY ASPIRIN 81 MG PO DAILY CRESTOR 10 MG PO DAILY ACTIVITY TOLERATED CALL DR BOSTON OR GO TO THE EMERGENCY ROOM IF SYMPTOM RETURN OR WORSENING Referrals: Deon Blake MD [Staff Provider] - Haritha Cabrera MD [Staff Provider] - Rufino Boston MD [Staff Provider] -
--- NOTE | 2018-08-07 19:14 | DS ---
DISCHARGE DIAGNOSES: 1. Sinus tachycardia. 2. Hypertension. 3. Hyperlipidemia. 4. Type 2 diabetes. HOSPITAL COURSE: This is a 52-year-old female with history of diabetes, hypertension, hyperlipidemia, came in because of palpitation, weakness, dizziness, chest pain. The patient was admitted to the floor. She was started on beta-blockers and the patient's heart rate went down. She underwent a stress test which is negative for ischemia. TSH is negative and the patient's echocardiogram was normal. Condition upon discharge was stable. She will be followed up by her PMD as outpatient. Rufino Boston MD
== END 2018-08-06 16:00 | disposition home or self-care (01) ==
LOC: C.ER 08:57 → C.5S 10:43
PROVIDERS: ADMIT Internal Medicine; ATTEND Internal Medicine
DX: R07.2 Precordial pain (principal); R00.2 Palpitations; E11.9 Type 2 diabetes mellitus without complications; E78.5 Hyperlipidemia, unspecified; I10 Essential (primary) hypertension; Z79.82 Long term (current) use of aspirin; Z79.899 Other long term (current) drug therapy; R51 Headache; R00.0 Tachycardia, unspecified
CPT/HCPCS: 36415; 71045; 78452; 80053; 81001; 82550; 82553; 82948; 84443; 84484; 85025; 85610; 85730; 87086; 87804; 93005; 93017; 93306; 96360; 96374; 99285; A9502; G0378; J1650; J2785; J7030